=== PATIENT | female | born 1990 | race Caucasian/White ===

== ENCOUNTER 2022-02-24 15:33 | Day surgery (SDC) | payer OTHER ==
[2022-02-24 16:39] VITALS: BMI 31.1
[2022-02-24] MEDS ORDERED: hydrALAZINE 20 MG/ML VIAL SLOW IVP PRN (19:11)
== END 2022-02-24 20:50 | disposition home or self-care (01) ==
LOC: CSHLD/OP 15:33
PROVIDERS: ATTEND Obstetrics & Gynecology
DX: O47.1 False labor at or after 37 completed weeks of gestation (principal); Z79.899 Other long term (current) drug therapy; Z88.0 Allergy status to penicillin; Z88.8 Allergy status to other drugs, medicaments and biological substances; Z3A.38 38 weeks gestation of pregnancy
CPT/HCPCS: 99283

== ENCOUNTER 2022-02-26 07:55 | Inpatient (IN) | payer OTHER ==
[2022-02-26] MEDS ORDERED: Bupivacaine/Epinephrine 0.25% 30 ML VIAL ONE (08:00)
[2022-02-26] MEDS ORDERED: Lidocaine 2% PF 5 ML VIAL ONE (08:00)
[2022-02-26 08:32] LABS: Fetal Membranes Rupture RUPTURE DETECTED (No Rupture)
[2022-02-26 08:33] VITALS: BMI 31.1
[2022-02-26] MEDS ORDERED: Ondansetron PF 4 MG/2 ML Vial IVP PRN ×2 (08:49→12:47)
[2022-02-26] MEDS ORDERED: hydrALAZINE 20 MG/ML VIAL SLOW IVP PRN ×2 (08:49→16:09)
[2022-02-26] MEDS ORDERED: Promethazine HCl 25 MG/ML VIAL IM PRN ×2 (08:49→12:47)
[2022-02-26] MEDS ORDERED: Lidocaine 1% (PF) 30 ML VIAL SC PRN (08:49)
[2022-02-26] MEDS ORDERED: NS w/ Oxytocin 30 units 500 ML IV SCH ×2 (09:00→11:15)
[2022-02-26] MEDS ORDERED: Lactated Ringer's 1,000 ML IV SCH (09:00)
[2022-02-26 09:17] LABS: Hemoglobin 12.9 g/dL (12.0-15.5); Mean Corpuscular HGB CONC 34.1 g/dL (32.0-36.0); Mean Corpuscular Hemoglobin 33.4 pg (27.0-33.0); Mean Corpuscular Volume 97.9 fl (81.6-98.3); Mean Platelet Volume 11.1 fl (7.4-10.4); Platelet Count 227 10x3/uL (150-450); RBC Distribution Width 12.6 % (11.5-14.5); Red Blood Cell (RBC) Count 3.86 10x6/uL (3.90-5.03); White Blood Cell (WBC) Count 7.3 10x3/uL (3.5-10.5)
[2022-02-26 09:48] LABS: Hep B Surf Ag Non-Reactive S/CO (NonReactive)
[2022-02-26] MEDS ORDERED: NS w/ Oxytocin 30 units 500 ML ONE (11:13)
[2022-02-26] MEDS ORDERED: Fentanyl 2 mcg/Bup 0.1% Cadd 100 ML ONE (11:37)
[2022-02-26 12:04] LABS: SARS-CoV-2 NAA Rapid Test Not Detected (NotDetected)
[2022-02-26 12:29] LABS: Syphilis Antibody Nonreactive (Nonreactive); Syphilis Antibody Index 0.07 S/CO (<1.00 Non-Reactive)
[2022-02-26] MEDS ORDERED: diphenhydrAMINE 50 MG/ML VIAL IVP PRN (12:47)
[2022-02-26] MEDS ORDERED: Naloxone HCl 0.4 mg/ml Vial IVP PRN ×2 (12:47)
[2022-02-26] MEDS ORDERED: Acetaminophen 325 MG TAB PO PRN (12:47)
[2022-02-26] MEDS ORDERED: Moisturizing Cream (Eucerin) 113 GM JAR TOP PRN (12:47)
[2022-02-26] MEDS ORDERED: ePHEDrine Sulfate 50 MG/10 ML VIAL SLOW IVP PRN (12:47)
[2022-02-26] MEDS ORDERED: Lactated Ringer's 500 ML IV PRN (12:47)
[2022-02-26] MEDS ORDERED: Fentanyl 2 mcg/Bupivacaine 0.1% Cassette 100 ML EPIDURAL SCH (13:00)
[2022-02-26] MEDS ORDERED: Communication Order-Pharmacy FS SCH (13:00)
[2022-02-26] MEDS ORDERED: Boostrix 0.5 ML (Tdap) VIAL (>/=7 yrs of age) IM ONE (16:09)
[2022-02-26] MEDS ORDERED: Preparation H Ointment 28 GM TUBE PR PRN (16:09)
[2022-02-26] MEDS ORDERED: Benzocaine-Menthol 82.5 ML CAN TOP PRN (16:09)
[2022-02-26] MEDS ORDERED: Bisacodyl 10 MG SUPP PR PRN (16:09)
[2022-02-26] MEDS ORDERED: Misoprostol 200 MCG TAB VAG PRN (16:09)
[2022-02-26] MEDS ORDERED: diphenhydrAMINE 25 MG CAP PO PRN (16:09)
[2022-02-26] MEDS ORDERED: Milk Of Magnesia 30 ML UDCUP PO PRN (16:09)
[2022-02-26] MEDS ORDERED: traMADol HCl 50 MG TAB PO PRN (16:09)
[2022-02-26] MEDS: Ibuprofen 800 MG TAB PO SCH (17:54)
[2022-02-26] MEDS: Docusate 100 MG CAP PO SCH (21:10)
[2022-02-27] MEDS: Ibuprofen 800 MG TAB PO SCH ×2 (01:23→11:47)
[2022-02-27] MEDS: Docusate 100 MG CAP PO SCH (08:19)
[2022-02-27] MEDS ORDERED: Prenatal Vitamin 1 TAB PO SCH (09:00)
[2022-02-27] MEDS: Ferrous Sulfate 325 MG TAB PO SCH ×2 (11:48→11:49)
[2022-02-27 12:20] VITALS: BP 125/76; TEMP 98.4
== END 2022-02-27 18:03 | disposition home or self-care (01) | DRG 807 ==
LOC: CSHLD/OP 07:55 → CSHLD 08:57 → CSHPP 18:00
PROVIDERS: ADMIT Obstetrics & Gynecology; ATTEND Obstetrics & Gynecology
PROC: 10E0XZZ Delivery of Products of Conception, External Approach (ICD-10-PCS; principal; 2022-02-26)
PROC: 0KQM0ZZ Repair Perineum Muscle, Open Approach (ICD-10-PCS; 2022-02-26)
PROC: 3E0334Z Introduction of Serum, Toxoid and Vaccine into Peripheral Vein, Percutaneous Approach (ICD-10-PCS; 2022-02-26)
DX: O26.893 Other specified pregnancy related conditions, third trimester (principal); Z37.0 Single live birth; Z67.41 Type O blood, Rh negative; Z3A.38 38 weeks gestation of pregnancy; O70.1 Second degree perineal laceration during delivery; Z88.1 Allergy status to other antibiotic agents; Z88.0 Allergy status to penicillin; Z20.822 Contact with and (suspected) exposure to COVID-19
CPT/HCPCS: 36415; 51702; 84112; 85027; 85461; 86780; 86850; 86900; 86901; 87340; 90384; 96372; 99285; J2001; J2590; U0002

== ENCOUNTER 2024-06-06 17:13 | Inpatient (IN) | payer OTHER ==
[2024-06-06 17:43] VITALS: BMI 31.8
[2024-06-06] MEDS ORDERED: Ondansetron PF 4 MG/2 ML Vial IVP PRN ×2 (18:31→19:58)
[2024-06-06] MEDS ORDERED: Lidocaine 1% (PF) 30 ML VIAL SC PRN (18:31)
[2024-06-06] MEDS ORDERED: hydrALAZINE 20 MG/ML VIAL SLOW IVP PRN ×2 (18:31→22:28)
[2024-06-06] MEDS ORDERED: Promethazine HCl 25 MG/ML VIAL IM PRN ×2 (18:31→19:58)
[2024-06-06] MEDS ORDERED: Oxytocin 30 units/NS 500 ML 500 ML IV SCH (18:45)
[2024-06-06 18:54] LABS: Hematocrit 35.5 % (34.9-44.5); Hemoglobin 12.1 g/dL (12.0-15.5); Mean Corpuscular HGB CONC 34.1 g/dL (32.0-36.0); Mean Corpuscular Hemoglobin 32.5 pg (27.0-33.0); Mean Corpuscular Volume 95.4 fL (81.6-98.3); Mean Platelet Volume 11.6 fL (7.4-10.4); Platelet Count 249 10x3/uL (150-450); RBC Distribution Width 12.9 % (11.5-14.5); Red Blood Cell (RBC) Count 3.72 10x6/uL (3.90-5.03); White Blood Cell (WBC) Count 9.2 10x3/uL (3.5-10.5)
[2024-06-06 18:59] LABS: ALT (SGPT) 11 U/L (8-55); AST (SGOT) 17 U/L (5-34); Albumin 2.8 g/dL (3.5-5.0); Alkaline Phosphatase 125 U/L (40-110); Anion Gap 16 mmol/L (10-20); BUN (Urea Nitrogen) 8 mg/dL (7.0-18.7); Bilirubin, Total 0.6 mg/dL (0.2-1.2); Calc. Creatinine Clearance 177 mL/min (70-130); Calcium 8.7 mg/dL (7.8-10.44); Carbon Dioxide 18 mmol/L (22-29); Chloride 106 mmol/L (98-107); Estimated GFR 124; Globulin 3.4 g/dL (2.4-3.5); Glucose 71 mg/dL (70-105); Potassium 3.7 mmol/L (3.5-5.1); Protein, Total 6.2 g/dL (6.0-8.3); Sodium 136 mmol/L (136-145)
[2024-06-06 19:16] LABS: HBsAg Index 0.17 S/CO (0-0.99); HIV (1/2) Antibody/Antigen Non-Reactive (NonReactive); HIV 1/2 INDEX 0.05 S/CO (<1.00); Hep B Surf Ag - L&D Non-Reactive S/CO (NonReactive)
[2024-06-06 19:17] LABS: Syphilis Antibody Nonreactive (Nonreactive); Syphilis Antibody Index 0.07 S/CO (<1.00 Non-Reactive)
[2024-06-06] MEDS: fentaNYL/Ropivacaine Epidural 100 ML ONE (19:49)
[2024-06-06] MEDS ORDERED: diphenhydrAMINE 50 MG/ML VIAL IVP PRN (19:58)
[2024-06-06] MEDS ORDERED: Moisturizing Cream (Eucerin) 113 GM JAR TOP PRN (19:58)
[2024-06-06] MEDS ORDERED: ePHEDrine Sulfate 50 MG/10 ML VIAL SLOW IVP PRN (19:58)
[2024-06-06] MEDS ORDERED: Acetaminophen 325 MG TAB PO PRN (19:58)
[2024-06-06] MEDS ORDERED: Lactated Ringer's 500 ML IV PRN (19:58)
[2024-06-06] MEDS ORDERED: Naloxone HCl 0.4 mg/ml Vial IVP PRN ×2 (19:58)
[2024-06-06] MEDS ORDERED: fentaNYL 2 mcg/Ropivacaine 0.2% Epidural 100 ML CADD EPIDURAL SCH (20:00)
[2024-06-06] MEDS ORDERED: Communication Order-Pharmacy FS SCH (20:00)
[2024-06-06] MEDS ORDERED: Boostrix 0.5 ML (Tdap) VIAL (>/=7 yrs of age) IM ONE (22:28)
[2024-06-06] MEDS ORDERED: Bisacodyl 10 MG SUPP PR PRN (22:28)
[2024-06-06] MEDS ORDERED: Milk Of Magnesia 30 ML UDCUP PO PRN (22:28)
[2024-06-06] MEDS ORDERED: traMADol HCl 50 MG TAB PO PRN (22:28)
[2024-06-06] MEDS ORDERED: Lanolin Ointment 7 GM TUBE TOP PRN (22:28)
[2024-06-07] MEDS: Ibuprofen 800 MG TAB PO SCH (00:59)
[2024-06-07] MEDS: Benzocaine-Menthol 82.5 ML CAN TOP PRN (03:17)
[2024-06-07] MEDS: Docusate 100 MG CAP PO SCH (07:48)
[2024-06-07] MEDS: Ferrous Sulfate 325 MG TAB PO SCH (08:00)
[2024-06-07 20:36] VITALS: BP 112/70; TEMP 98.2
== END 2024-06-07 22:10 | disposition home or self-care (01) | DRG 807 ==
LOC: CSHLD/OP 17:13 → CSHLD 17:42 → CSHPP 23:00
PROVIDERS: ADMIT Obstetrics & Gynecology; ATTEND Obstetrics & Gynecology
PROC: 10E0XZZ Delivery of Products of Conception, External Approach (ICD-10-PCS; principal; 2024-06-06)
PROC: 3E0334Z Introduction of Serum, Toxoid and Vaccine into Peripheral Vein, Percutaneous Approach (ICD-10-PCS; 2024-06-07)
DX: O13.4 Gestational [pregnancy-induced] hypertension without significant proteinuria, complicating childbirth (principal); Z37.0 Single live birth; Z79.82 Long term (current) use of aspirin; Z3A.37 37 weeks gestation of pregnancy; O70.0 First degree perineal laceration during delivery
CPT/HCPCS: 36415; 51702; 80053; 85027; 85461; 86780; 86850; 86900; 86901; 87340; 87389; 90384; 96372; 99285